=== PATIENT | female | born 1980 | race Caucasian/White ===

== ENCOUNTER 2017-01-28 10:55 | Emergency (ER) | payer OTHER ==
[~2017-01-28] VITALS: Ht 170.2 cm; Wt 70.0 kg
[2017-01-28 12:21] LABS: HEMATOCRIT 38.7 % (36.0-46.0); MCH 30.3 PG (29.0-34.0); MCHC 33.9 G/DL (30.0-36.0); MCV 89.6 FL (83-99); MEAN PLAT.VOLUME 10.2 uM^3 (9.5-12.4); PLATELET COUNT 195 K/uL (156-360); RBC DIS.WIDTH-CV 12.3 % (11.8-14.6); RBC DIS.WIDTH-SD 40.3 % (39-53); RED BLOOD COUNT 4.32 M/uL (3.80-5.20); WHITE BLOOD COUNT 6.3 K/uL (4.1-10.2)
[2017-01-28 12:37] LABS: CHLORIDE 109 mEq/L (99-109); POTASSIUM 4.1 mEq/L (3.7-5.4); SODIUM 140 mEq/L (136-147)
[2017-01-28 12:39] LABS: GLUCOSE 107 mg/dL (70-99)
[2017-01-28 12:41] LABS: ANION GAP 9 MEQ/L (2-14); TOTAL BILIRUBIN 0.3 mg/dL (0.0-1.0)
[2017-01-28 12:43] LABS: ALKALINE PHOSPHATASE 44 IU/L (3-129); GFR ESTIMATE (CALCULATED) > 59 mL/min/
[2017-01-28 12:44] LABS: UREA NITROGEN (BUN) 9 mg/dL (9-23)
[2017-01-28 12:54] LABS: QUANTITATIVE HCG < 4.0 MIU/ML
[2017-01-28 13:41] VITALS: BP 113/78
== END 2017-01-28 13:42 | disposition home or self-care (01) ==
LOC: EME → EDBD 10:55 → EME 13:42
PROVIDERS: Physician Assistant
DX: R10.30 Lower abdominal pain, unspecified (principal); F17.200 Nicotine dependence, unspecified, uncomplicated
CPT/HCPCS: 80053; 81003; 84702; 85027; 99281; 99284

== ENCOUNTER 2018-06-03 07:43 | Emergency (ER) | payer OTHER ==
[~2018-06-03] VITALS: Ht 170.2 cm; Wt 60.4 kg
[2018-06-03 08:31] LABS: BASOPHIL (%) 0.2 % (0-1); EOSINOPHIL (%) 0.4 % (0-5); EOSINOPHIL COUNT 0.1 K/uL (0-0.3); HEMATOCRIT 43.9 % (36.0-46.0); HEMOGLOBIN 14.5 G/DL (11.9-15.5); IMMATURE GRANULOCYTE (%) 0.4 % (0.0-0.7); LYMPHOCYTE (%) 14.1 % (15-42); LYMPHOCYTE COUNT 2.1 K/uL (1.0-2.8); MCH 29.9 PG (29.0-34.0); MCV 90.5 FL (83-99); MONOCYTE (%) 4.5 % (3-12); MONOCYTE COUNT 0.7 K/uL (0-0.8); NEUTROPHIL (%) 80.4 % (45-76); NEUTROPHIL COUNT 11.9 K/uL (1.8-6.4); PLATELET COUNT 238 K/uL (156-360); RBC DIS.WIDTH-CV 13.4 % (11.8-14.6); RBC DIS.WIDTH-SD 43.6 % (39-53); RED BLOOD COUNT 4.85 M/uL (3.80-5.20); WHITE BLOOD COUNT 14.8 K/uL (4.1-10.2)
[2018-06-03 08:39] LABS: D-DIMER ELISA < 150.00 ng/mLDDU (<230)
[2018-06-03 08:40] LABS: PTT 30.6 SEC (25-37)
[2018-06-03 08:45] LABS: CHLORIDE 103 mEq/L (99-109); POTASSIUM 4.5 mEq/L (3.7-5.4); SODIUM 138 mEq/L (136-147)
[2018-06-03 08:47] LABS: GLUCOSE 79 mg/dL (70-99)
[2018-06-03 08:50] LABS: CREATININE 0.8 mg/dL (0.6-1.3); GFR ESTIMATE (CALCULATED) > 59 mL/min/
[2018-06-03 08:51] LABS: UREA NITROGEN (BUN) 13 mg/dL (9-23)
[2018-06-03 08:54] LABS: TROP-I INTERPRETATION NEGATIVE; TROPONIN-I < 0.01 ng/mL (0.0-0.30)
[2018-06-03] MEDS ORDERED: ZITHROMAX Z-PA250 MG PO (09:43)
[2018-06-03] MEDS ORDERED: MOTRIN800 MG PO ×2 (09:43→10:04)
[2018-06-03 10:54] VITALS: BP 107/74
== END 2018-06-03 11:29 | disposition home or self-care (01) ==
LOC: EME 07:43
PROVIDERS: Emergency Medicine
DX: J40 Bronchitis, not specified as acute or chronic (principal); R07.89 Other chest pain; F90.9 Attention-deficit hyperactivity disorder, unspecified type; F17.200 Nicotine dependence, unspecified, uncomplicated
CPT/HCPCS: 71045; 80048; 84484; 85025; 85379; 85610; 85730; 93005; 99281; 99285; J1885